=== PATIENT | female | born 1950 | race American Indian/Alaskan Native ===

== ENCOUNTER 2016-07-22 05:42 | Day surgery (SDC) | payer MEDICARE, OTHER ==
[~2016-07-22 05:42] MED LIST: LACTATED RINGERS 1,000 ML IV SCH; VANCOMYCIN/NS 1 GM/250 ML 1 GM/250 ML BAG IV NR
[2016-07-22] MEDS ORDERED: PEPCID PO NR (06:00)
[2016-07-22] MEDS ORDERED: VERSED IV NR (06:00)
[2016-07-22] MEDS ORDERED: NACL 0.9% 1000 ML 1,000 ML IV SCH (06:00)
--- NOTE | 2016-07-22 06:55 | Anesthesia Day of Surgery ---
Anesthesia Day of Surgery - Day of Surgery Patient Examined: Yes Patient H&P Reviewed: Yes Patient is NPO: Yes
--- NOTE | 2016-07-22 06:55 | Anesthesia Consultation ---
Anesthesia Consult and Med Hx Date of service: 07/22/16 - Airway Anesthetic Teeth Evaluation: Good ROM Head & Neck: Adequate Mental/Hyoid Distance: Adequate Mallampati Class: Class II Intubation Access Assessment: Probably Good - Pulmonary Exam CTA: Yes - Cardiac Exam Cardiac Exam: RRR - Pre-Operative Health Status ASA Pre-Surgery Classification: ASA2 Proposed Anesthetic Plan: General - Pulmonary Hx Smoking: No Hx Asthma: Yes Hx Sleep Apnea: No
[2016-07-22] MEDS ORDERED: NACL BACTERIOSTATIC INFILTRATI ONE (07:06)
[2016-07-22] MEDS ORDERED: DIPRIVAN 10 MG/ML IV ONE (07:20)
[2016-07-22] MEDS ORDERED: DILAUDID ONE (07:20)
[2016-07-22] MEDS ORDERED: XYLOCAINE MPF 2% ONE (07:21)
[2016-07-22 07:26] LABS: Bilirubin,Urine NEG (Negative); Blood,Urine NEG (Negative); Ketones,Urine NEG (Negative); Leukocyte Esterase,Urine NEG (Negative); Nitrite,Urine NEG (Negative); Protein,Urine <15 mg/dL mg/dL (Negative); Urobilinogen,Urine < 2.0 mg/dL (<2.0); WBC,Urine < 1.0 /HPF (0.0-6.0)
[2016-07-22] MEDS ORDERED: AMIDATE IV ONE (07:33)
[2016-07-22] MEDS ORDERED: NACL 0.9% IR ONE (07:33)
[2016-07-22] MEDS ORDERED: MARCAINE 0.5% INFILTRATI ONE (07:33)
[2016-07-22] MEDS ORDERED: XYLOCAINE 1%/ EPI 1:100,000 INFILTRATI ONE (07:33)
[2016-07-22] MEDS ORDERED: ePHEDrine SULFATE ONE (07:56)
[2016-07-22] MEDS ORDERED: ZOFRAN ONE ×2 (08:09→10:10)
[2016-07-22] MEDS ORDERED: DILAUDID IV PRN (08:37)
--- NOTE | 2016-07-22 09:36 | Post Anesthesia Evaluation ---
- Post Anesthesia Evaluation Patient Participated: Yes Airway Patent: Yes Stable Respiratory Function: Yes Nausea/Vomiting: No Temp > 96.8F: Yes Pain Manageable: Yes Adequeate Hydration: Yes Anesthesia Complications: No Block Receding Appropriately: Not Applicable Patient on Ventilator: No
[2016-07-22] MEDS ORDERED: ZOFRAN IV PRN (10:15)
[2016-07-22 10:56] VITALS: BP 118/63
--- NOTE | 2016-08-14 16:18 | Operative Report ---
PREOPERATIVE DIAGNOSES: 1. Soft tissue mass of the left upper arm. 2. Soft tissue mass of the left flank. POSTOPERATIVE DIAGNOSES: 1. Soft tissue mass of the left upper arm. 2. Soft tissue mass of the left flank. OPERATIVE PROCEDURE: Excision of the soft tissue mass of the left upper arm and excision of soft tissue mass of the left upper flank. BRIEF HISTORY AND PHYSICAL: This patient had come in to the office with complaints of an enlarging soft tissue mass of the left upper arm and the left flank region and is beginning to cause her some concern because they were increasingly tender. The lesions measured on physical examination 3 x 3 cm in size and the other 4 x 3 cm in size of the upper arm. DESCRIPTION OF PROCEDURE: The patient was placed on the operating table in the dorsal supine position and following satisfactory induction of general anesthesia, the flank and arms were prepped using Hibiclens solution and scrubbed and draped in a sterile fashion. Then, using a sharp skin knife, a skin incision was made directly over the flank mass and it was teased out using sharp scissor dissection and the Bovie electrocautery for hemostasis. After this lesion was completely teased out, it was approximately 4 x 3 x 3 cm in size and was sent down to the pathologist. The incision was closed by reapproximating the subdermal layer with interrupted simple suture of 4-0 Monocryl and the skin was closed using a running subcuticular suture layer of 4-0 Monocryl. Attention was then turned to the left flank region and a small incision was made directly over this left flank region and carried down to the level of subcutaneous and used Bovie electrocautery for hemostasis. The mass in question was teased away using sharp scissor dissection. Bleeding was controlled using the Bovie electrocautery. After adequate hemostasis was obtained, the incisions were closed in a simple fashion with interrupted simple sutures of 4-0 Monocryl for the subdermal area and a running subcuticular suture for a subcuticular closure. Steri-Strips were applied to the wound. The patient tolerated the procedure well and was subsequently sent out to recovery room in satisfactory condition. JOB# [id number] MARIA FERNANDA/JOSEPH
== END 2016-07-22 10:55 | disposition home or self-care (01) ==
LOC: OR 05:42
PROVIDERS: ATTEND Specialist
DX: M79.89 Other specified soft tissue disorders (principal); J45.909 Unspecified asthma, uncomplicated; Z96.651 Presence of right artificial knee joint; Z98.890 Other specified postprocedural states; Z82.49 Family history of ischemic heart disease and other diseases of the circulatory system
CPT/HCPCS: 21931; 24071; 81001; 88304; J1170; J2250; J2405; J3370; J7030; 88307; J2704